=== PATIENT | female | born 2000 | race American Indian/Alaskan Native ===

== ENCOUNTER 2021-06-14 21:14 | Emergency (ER) | payer OTHER ==
[2021-06-14 22:10] VITALS: BP 152/107
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
[2021-06-15] MEDS ORDERED: IBUPROFEN 600 MG TAB PO ONE (01:41)
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
== END 2021-06-15 03:28 | disposition home or self-care (01) ==
LOC: ED 21:14
DX: S29.012A Strain of muscle and tendon of back wall of thorax, initial encounter (principal); S16.1XXA Strain of muscle, fascia and tendon at neck level, initial encounter; S70.12XA Contusion of left thigh, initial encounter; Z79.899 Other long term (current) drug therapy; V87.7XXA Person injured in collision between other specified motor vehicles (traffic), initial encounter; Y93.89 Activity, other specified; Y92.488 Other paved roadways as the place of occurrence of the external cause; Y99.8 Other external cause status
CPT/HCPCS: 99283